=== PATIENT | female | born 2005 | race Caucasian/White ===

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

== ENCOUNTER 2023-05-14 11:04 | Emergency (ER) | payer MEDICAID ==
[~2023-05-14] VITALS: Ht 167.6 cm; Wt 102.7 kg
[2023-05-14 11:17] VITALS: BP 123/72; PULSE 132; RESP 20; TEMP 98.4; O2SAT 99
[2023-05-14] MEDS ORDERED: CIPR7.5S LEFT EAR (12:07)
== END 2023-05-14 12:12 | disposition home or self-care (01) ==
LOC: MED 11:04
DX: H60.92 Unspecified otitis externa, left ear (principal); Z79.2 Long term (current) use of antibiotics
CPT/HCPCS: 99283

== ENCOUNTER 2023-08-15 18:39 | Emergency (ER) | payer MEDICAID ==
[~2023-08-15] VITALS: Ht 167.6 cm; Wt 90.7 kg
[~2023-08-15 18:39] MED LIST: CIPR7.5S LEFT EAR
[2023-08-15 19:14] VITALS: BP 130/90; PULSE 105; RESP 18; TEMP 98.1; O2SAT 99
[2023-08-15] MEDS ORDERED: OFLO5SOL27 LEFT EAR (19:55)
== END 2023-08-15 20:03 | disposition home or self-care (01) ==
LOC: MED 18:39
DX: H60.92 Unspecified otitis externa, left ear (principal); Z79.899 Other long term (current) drug therapy
CPT/HCPCS: 99283